=== PATIENT | female | born 1980 | race Caucasian/White ===

== ENCOUNTER 2018-07-01 08:37 | Day surgery (SDC) | payer OTHER ==
[~2018-07-01] VITALS: Ht 168.9 cm; Wt 80.3 kg
[~2018-07-01 08:37] MED LIST: HYDROmorphone 2 MG/ML VIAL IV PRN; IV RINGERS,LACTATED 1000ML 1,000 ML IV SCH; MORPHINE SULFATE 2 MG/ML VIAL. IV PRN; PROCHLORPERAZINE 10 MG/2 ML VIAL. IV PRN; fentaNYL PF VIAL 100 MCG/2 ML VIAL IV PRN
[2018-07-01] MEDS ORDERED: SERT100T PO (08:54)
[2018-07-01] MEDS ORDERED: BUSP10TA PO (08:54)
[2018-07-01 09:06] LABS: U PREG PATIENT NEGATIVE (NEG)
[2018-07-01] MEDS ORDERED: BUPIVAC MPF-EPI 0.5%-1:200000 30 ML VIAL. ONE (09:06)
[2018-07-01] MEDS ORDERED: PROPOFOL 20 ML IV ONE (09:48)
[2018-07-01] MEDS ORDERED: DEXAMETHASONE SOD PHOS 20 MG/5 ML VIAL. ONE (09:48)
[2018-07-01] MEDS ORDERED: LIDOCAINE 2% PF 5 ML VIAL. ONE (09:48)
[2018-07-01] MEDS ORDERED: ROCURONIUM 50 MG/5 ML VIAL. ONE (09:48)
[2018-07-01] MEDS ORDERED: MIDAZOLAM HCL/PF 2 MG/2 ML VIAL. ONE (09:48)
[2018-07-01] MEDS ORDERED: ONDANSETRON PF 4 MG/2 ML VIAL. ONE (09:48)
[2018-07-01] MEDS ORDERED: fentaNYL PF VIAL 100 MCG/2 ML VIAL ONE ×2 (09:48→10:31)
[2018-07-01] MEDS ORDERED: NEOSTIGMINE METHYLSULFATE 5 MG/5 ML SYRINGE. ONE (10:43)
[2018-07-01] MEDS ORDERED: GLYCOPYRROLATE 1 MG/5 ML VIAL. ONE (10:43)
[2018-07-01] MEDS ORDERED: SEVOFLURANE 31 TO 60 MINUTES. IH ONE (10:45)
--- NOTE | 2018-07-01 10:55 | PDOC ---
BRIEF OPERATIVE NOTE Date: Jul 01, 2018 Pre-Op Diagnosis subcutaneous mass, right mid back Post-Op Diagnosis same Procedure Performed excision Surgeon Andrzej Anesthesia Type: General (endotracheal) Blood Loss 10cc IV Fluid 500cc Specimens Obtained subcutaneous mass 5.5x5x2 cm Findings fatty tumor Complications none DANIELLE LOERA MD Jul 01, 2018 10:55
--- NOTE | 2018-07-01 11:05 | PDOC1 ---
History and Physical Date of Admission Date of Admission DATE: 07/01/18 TIME: 11:00 Identification/Chief Complaint Chief Complaint pain right mid back Source Source: Chart review, Patient History of Present Illness History of Present Illness 37 yo female inmate with pain and palpable mass, right mid back Past Medical History Cardiovascular: No pertinent hx Pulmonary: No pertinent hx Renal/: No pertinent hx Past Surgical History Past Surgical History: Family History Family History: No Significant Social History Smoke: No ALCOHOL: none Drugs: None Current Medications Current Medications Current Medications Levofloxacin/ Dextrose 100 ml @ 100 mls/hr 1X PREOP PRN IV PRIOR TO PROCEDURE ; Start 07/01/18 at 06:00; Stop 07/01/18 at 18:00 Fentanyl Citrate (Fentanyl 2ml Vial) 25 mcg PRN Q5MIN PRN IV MILD PAIN; Start 07/01/18 at 07:30; Stop 07/01/18 at 20:00 Fentanyl Citrate (Fentanyl 2ml Vial) 50 mcg PRN Q5MIN PRN IV MODERATE TO SEVERE PAIN; Start 07/01/18 at 07:30; Stop 07/01/18 at 20:00 Morphine Sulfate (Morphine Sulfate) 1 mg PRN Q10MIN PRN IV SEVERE PAIN; Start 07/01/18 at 07:30; Stop 07/01/18 at 20:00 Ringer's Solution 1,000 ml @ 30 mls/hr Q24H IV Last administered on 07/01/18at 09:13; Start 07/01/18 at 07:18; Stop 07/01/18 at 19:17 Hydromorphone HCl (Dilaudid) 0.5 mg PRN Q10MIN PRN IV SEV PAIN, Second choice; Start 07/01/18 at 07:30; Stop 07/01/18 at 20:00 Prochlorperazine Edisylate (Compazine) 5 mg PACU PRN PRN IV NAUSEA, MRX1; Start 07/01/18 at 07:30; Stop 07/02/18 at 07:29 Fentanyl Citrate (Fentanyl 2ml Vial) 100 mcg STK-MED ONCE .ROUTE ; Start at 09:48; Stop 07/01/18 at 09:49; Status DC Midazolam HCl (Versed) 2 mg STK-MED ONCE .ROUTE ; Start 07/01/18 at 09:48; Stop 07/01/18 at 09:49; Status DC Rocuronium [place] (Zemuron) 50 mg STK-MED ONCE .ROUTE ; Start 07/01/18 at 09:48 ; Stop 07/01/18 at 09:49; Status DC Propofol 20 ml @ As Directed STK-MED ONCE IV ; Start 07/01/18 at 09:48; Stop 07/01 at 09:49; Status DC Lidocaine HCl (Lidocaine Pf 2% Vial) 5 ml STK-MED ONCE .ROUTE ; Start 07/01/18 at 09:48; Stop 07/01/18 at 09:49; Status DC Ondansetron HCl (Zofran) 4 mg STK-MED ONCE .ROUTE ; Start 07/01/18 at 09:48; Stop 07/01/18 at 09:49; Status DC Dexamethasone Sodium Phosphate (Decadron) 20 mg STK-MED ONCE .ROUTE ; Start 07/01 at 09:48; Stop 07/01/18 at 09:49; Status DC Bupivacaine HCl/ Epinephrine Bitart (Sensorcain-Mpf Epi 0.5%-1:[id number]) 30 ml STK -MED ONCE .ROUTE Last administered on 07/01/18at 10:53; Start 07/01/18 at 09:06; Stop 07/01/18 at 10:06; Status DC Fentanyl Citrate (Fentanyl 2ml Vial) 100 mcg STK-MED ONCE .ROUTE ; Start at 10:31; Stop 07/01/18 at 10:32; Status DC Neostigmine Methylsulfate (Neostigmine Methylsulfate) 5 mg STK-MED ONCE .ROUTE ; Start 07/01/18 at 10:43; Stop 07/01/18 at 10:44; Status DC Glycopyrrolate (Robinul) 1 mg STK-MED ONCE .ROUTE ; Start 07/01/18 at 10:43; Stop 07/01/18 at 10:44; Status DC Sevoflurane (Ultane) 30 ml STK-MED ONCE IH ; Start 07/01/18 at 10:45; Stop at 10:46; Status DC Active Scripts Active Reported Buspirone Hcl 10 Mg Tablet 1 Tab PO BID Zoloft (Sertraline Hcl) 100 Mg Tablet 1 Tab PO DAILY Allergies Allergies: Coded Allergies: Penicillins (Verified Allergy, Intermediate, Unknown, 07/01/18) ROS Review of System negative with current complaint Physical Exam General: Alert, Oriented X3, No acute distress HEENT: Atraumatic Lungs: Normal air movement Heart: RRR Abdomen: Soft Skin: Other (in the right mid back is a 5x5x2 cm mass) Vitals Vitals Vital Signs Date Time Temp Pulse Resp B/P (MAP) Pulse Ox O2 Delivery O2 Flow Rate FiO2 07/01/18 08:44 98.2 59 20 119/77 Room Air 98.2 Labs Labs Laboratory Tests Test 07/01/18 08:40 Urine Test Negative (NEG) Laboratory Tests Test 07/01/18 08:40 Urine Test Negative (NEG) VTE Prophylaxis Ordered VTE Prophylaxis Devices: Yes VTE Pharmacological Prophylaxi: No Assessment/Plan Assessment/Plan subcutaneous mass, right mid back excise DANIELLE LOERA MD Jul 01, 2018 11:05
[2018-07-01 11:35] VITALS: BP 109/64
--- NOTE | 2018-07-01 20:19 | OP ---
DATE OF SURGERY: 07/01/2018 PREOPERATIVE DIAGNOSIS: Subcutaneous mass, right mid back. POSTOPERATIVE DIAGNOSIS: Subcutaneous mass, right mid back. PROCEDURE: Excision of same. SPECIMEN: 5.5 x 5 x 2 cm subcutaneous mass. ANESTHESIA: General endotracheal. BLOOD LOSS: 10. INTRAVENOUS: 500. DESCRIPTION OF PROCEDURE: The patient brought to the operating suite, given a general endotracheal anesthetic, placed in a left lateral decubitus position and the area, which had been marked in the preop area with the patient's help was infiltrated with local anesthetic after prep and drape. Incision made and a lobulated fatty tumor removed intact hemostasis with cautery. When a correct sponge count was obtained, the wound was closed with interrupted inverted 3-0 Vicryl in the subcutaneous tissue. Subcuticular 4-0 Monocryl and Steri-Strips for the skin. Sterile dressing applied. The patient awakened from her anesthetic after being placed in the supine position and taken to the postop area in stable condition. DANIELLE LOERA MD DR: CHARLES/simin JOB#: [id number] / [id number]
--- NOTE | 2018-07-02 15:06 | PATHOLOGY ---
[facility] Accession Number: [id number] . 01 Material submitted: . SUBCUTANEOUS MASS RIGHT MID BACK . 01 Clinical history: . Back cyst . 02 Diagnosis: Fibroadipose tissue, right mid back subcutaneous mass excision: - Lipoma. (JPM:franck; 07/02/2018) [facility]BR/07/02/2018 . 02 Comment: There is no evidence of malignancy. (JPM:franck; 07/02/2018) . 02 Electronically signed: . Frank Carlsno MD, Pathologist NPI- [id number] . 01 Gross description: . The specimen is received in formalin, labeled "Vera [place], subcutaneous mass right mid back", is an irregular, yellow lobulated adipose tissue partially covered by a thin gutierrez-white membrane measuring 5.2 x 4.8 x 1.7 cm. The specimen is inked black, serially sectioned to show a glistening, yellow homogeneous cut surface with no discrete hemorrhage or necrosis. [employer] tissue is submitted in A1-A2. ([facility]; 07/01/2018) [facility] . 02 Pathologist provided ICD-10: D17.1 . 02 CPT . 578680 Specimen Comment: A courtesy copy of this report has been sent to Specimen Comment: [phone]. Specimen Comment: Report sent to Performed at: 01 [facility] [address] [facility] [address], [place] [id number] MD Sridhar Goodwin MD Phone: [phone] Performed at: 02 [facility] [address] [place], [place] [id number] MD Frank Carlson MD Phone: [phone]
== END 2018-07-01 11:39 | disposition home or self-care (01) ==
LOC: SURG 08:37
PROVIDERS: ATTEND Surgery
DX: D17.1 Benign lipomatous neoplasm of skin and subcutaneous tissue of trunk (principal); Z88.0 Allergy status to penicillin; Z98.890 Other specified postprocedural states; Z79.899 Other long term (current) drug therapy
CPT/HCPCS: 21931; 81025; A7015; J1100; J1956; J2001; J2250; J2405; J2704; J2710; J3010; J3490; 88304